=== PATIENT | female | born 1960 | race Caucasian/White ===

== ENCOUNTER 2024-05-20 05:03 | Day surgery (SDC) | payer OTHER ==
[2024-05-15 13:48] VITALS: BMI 33.4
[2024-05-20] MEDS: ceFAZolin SODIUM 1 GM VIAL IVPB ONE ×3 (14:40→16:40)
[2024-05-20] MEDS: LIDOCAINE HCL 1%, 10 MG/ML (20ML VIAL) INF ONE ×4 (14:41→16:41)
[2024-05-20] MEDS: BUPIVACAINE HCL/PF 0.5% (5MG/ML) 10 ML VIAL IJ ONE ×4 (14:41→16:41)
[2024-05-20] MEDS ORDERED: PROPOFOL 20 ML ONE (15:43)
[2024-05-20] MEDS ORDERED: MIDAZOLAM HCL 2 MG/2 ML SINGLE DOSE VIAL ONE ×2 (15:43→16:18)
[2024-05-20] MEDS ORDERED: ELECTROLYTE-148 SOLN 1,000 ML IV SCH (16:15)
[2024-05-20] MEDS ORDERED: BUPIVACAINE HCL/PF 0.5% (5MG/ML) 10 ML VIAL ONE (16:20)
[2024-05-20] MEDS ORDERED: LIDOCAINE HCL 1%, 10 MG/ML (20ML VIAL) ONE (16:20)
[2024-05-20] MEDS ORDERED: ceFAZolin SODIUM 1 GM VIAL ONE (16:38)
[2024-05-20] MEDS ORDERED: DEXAMETHASONE SOD PHOSPHATE 4 MG/1 ML VIAL ONE (16:40)
[2024-05-20] MEDS ORDERED: ONDANSETRON 4 MG/2 ML VIAL ONE ×2 (16:40→17:03)
[2024-05-20] MEDS ORDERED: KETOROLAC TROMETHAMINE 30 MG/1 ML VIAL ONE (17:04)
[2024-05-20] MEDS ORDERED: oxyCODONE HCL 5 MG TABLET PO PRN (17:24)
[2024-05-20] MEDS ORDERED: ONDANSETRON 4 MG/2 ML VIAL IVPUSH PRN (17:24)
[2024-05-20] MEDS ORDERED: PROMETHAZINE HCL 25 MG/1 ML VIAL IVPB PRN (17:24)
[2024-05-20] MEDS ORDERED: LACTATED RINGERS SOLUTION 1,000 ML IV SCH (17:30)
[2024-05-20 20:06] VITALS: RESP 18
[2024-05-20 20:27] VITALS: BP 139/84; PULSE 66; TEMP 97
== END 2024-05-20 20:15 | disposition home or self-care (01) ==
LOC: JASU-SURG 05:03
PROVIDERS: ATTEND Urology
PROC: 0TSD0ZZ Reposition Urethra, Open Approach (ICD-10-PCS; principal; 2024-05-20 10:30)
DX: N39.3 Stress incontinence (female) (male) (principal)
CPT/HCPCS: 57288; C2631; 88304-TC; 94760; C1771